=== PATIENT | female | born 2000 | race African-American/Black ===

== ENCOUNTER 2021-11-09 23:45 | Day surgery (SDC) | payer SELFPAY ==
[2021-11-10 00:05] VITALS: BMI 24.3
[2021-11-10] MEDS ORDERED: Acetaminophen 325 MG TAB PO SCH (00:15)
[2021-11-10] MEDS ORDERED: Lactated Ringer's 1,000 ML IV SCH (00:15)
== END 2021-11-10 01:30 | disposition home or self-care (01) ==
LOC: CSHLD/OP 23:45
PROVIDERS: ATTEND Obstetrics & Gynecology
DX: O99.891 Other specified diseases and conditions complicating pregnancy (principal); R10.30 Lower abdominal pain, unspecified; M54.9 Dorsalgia, unspecified; O99.283 Endocrine, nutritional and metabolic diseases complicating pregnancy, third trimester; E86.0 Dehydration; Z3A.25 25 weeks gestation of pregnancy
CPT/HCPCS: 96360; 99283